=== PATIENT | female | born 1980 | race Caucasian/White ===

== ENCOUNTER 2017-02-22 19:19 | Emergency (ER) | payer OTHER ==
[~2017-02-22] VITALS: Ht 147.3 cm; Wt 100.0 kg
[~2017-02-22 19:19] MED LIST: AMBIEN5 MG PO; AMOXICILLIN875 MG PO; ATARAX,VISTARIL25 MG PO; AUGMENTIN875 MG PO; ESCITALOPRAM OX10 MG PO; HYDROCHLOROTH12.5 M3 PO; IBUPROFEN800 MG PO; KEFLEX500 MG PO; LEXAPRO10 MG PO; LEXAPRO20 MG PO; LORATADINE10 M2 PO; MOTRIN600 MG PO; MOTRIN800 MG PO; NAPROSYN-EC500 MG PO; NOHOMEMEDS; NORCO 5/3251 TABLET PO; PRAVACHOL40 MG PO; SAPHRIS5 MG; ZESTORETIC,P1 TABLET PO; ZOLPIDEM TARTRAT5 MG PO
[2017-02-22 19:49] VITALS: BP 148/82
== END 2017-02-22 21:23 | disposition home or self-care (01) ==
LOC: EME 19:19
DX: S93.401A Sprain of unspecified ligament of right ankle, initial encounter (principal); W18.30XA Fall on same level, unspecified, initial encounter; X50.1XXA Overexertion from prolonged static or awkward postures, initial encounter; Y93.01 Activity, walking, marching and hiking; F17.200 Nicotine dependence, unspecified, uncomplicated
CPT/HCPCS: 73610; 99281; 99283